=== PATIENT | female | born 1980 | race African-American/Black ===

== ENCOUNTER 2018-10-30 05:56 | Inpatient (IN) ==
[2018-10-30] MEDS ORDERED: ONDANSETRON 4 MG/2 ML VIAL IV PRN (06:09)
[2018-10-30] MEDS ORDERED: LACTATED RINGERS 250 ML IV ONE (06:09)
[2018-10-30] MEDS ORDERED: AMPICILLIN INJ 2,000 MG in SODIUM CHLORIDE 0.9% 100 ML IV PRN (06:14)
[2018-10-30] MEDS ORDERED: LACTATED RINGERS 1,000 ML IV SCH (06:30)
[2018-10-30] MEDS ORDERED: OXYTOCIN/LR 20 UNIT/1,000 ML BAG IV SCH (06:30)
[2018-10-30 06:35] LABS: Basophils % 0.2 % (0.0-0.8); Eosinophils % 0.4 % (0.00-10.9); Hematocrit 34.1 VOL% (35.7-47.0); Hemoglobin 11.6 GM/DL (12.0-16.0); Immature Granulocytes % 0.8 %; Immature Granulocytes Absolute 0.08 #; Lymphocytes # 2.2 10*3/uL (1.4-4.0); Lymphocytes % 20.9 % (21.3-54.2); Mean Corpuscular Volume 86.1 FL (87-102); Mean Platelet Volume 9.4 FL (9.6-12.0); Monocytes % 8.6 % (1.7-12.7); Neutrophils % 69.1 % (38.7-73.9); Platelet Count 350 T/CUMM (130-400); Red Blood Count 3.96 MC/CUMM (3.8-5.5); Red Cell Distribution Width 12.8 % (9.3-17.3); White Blood Count 10.5 T/CUMM (4-12)
[2018-10-30 07:05] LABS: Alanine Aminotransferase 13 U/L (13-56); Albumin 2.6 G/DL (3.4-5.0); Alkaline Phosphatase 196 U/L (45-117); Aspartate Amino Transferase 13 U/L (0-37); Bilirubin,Total < 0.39 MG/DL (0.2-1.0); Blood Urea Nitrogen 7 MG/DL (7-18); Calcium 9.2 MG/DL (8.5-10.1); Glucose 78 MG/DL (74-106); Osmolality,Calculated 273.5 MOS/KG (273-304); Total Protein 6.6 G/DL (6.4-8.3)
[2018-10-30] MEDS ORDERED: LACTATED RINGERS 1,000 ML IV ONE (07:27)
[2018-10-30] MEDS ORDERED: BUPIVACAINE SPINAL 0.75% 2 ML AMP SPINAL ONE (07:58)
[2018-10-30] MEDS ORDERED: PHENYLEPHRINE 1 MG/10 ML SYRINGE IV ONE (07:58)
[2018-10-30] MEDS ORDERED: EPINEPHrine 1 MG/ML VIAL ONE (07:58)
[2018-10-30] MEDS ORDERED: DEXAMETHASONE 4 MG/1 ML VIAL ONE (07:58)
[2018-10-30] MEDS ORDERED: ROPIVACAINE 0.5% 30 ML VIAL ONE (07:58)
[2018-10-30] MEDS ORDERED: MORPHINE 10 MG/10 ML VIAL ONE (07:59)
[2018-10-30] MEDS ORDERED: OXYTOCIN/LR 30 UNIT/1,000 ML BAG IV ONE (08:14)
[2018-10-30] MEDS ORDERED: CITRIC ACID/SODIUM CITRATE 30 ML UDCUP PO ONE (08:14)
[2018-10-30] MEDS ORDERED: OXYTOCIN 10 UNIT/ML VIAL IM ONE (08:14)
[2018-10-30] MEDS ORDERED: ceFAZolin 2,000 MG in PREMIX 1 EACH IV ONE (08:26)
[2018-10-30] MEDS ORDERED: FAMOTIDINE 20 MG/2 ML VIAL IV SCH (08:30)
[2018-10-30 09:53] LABS: Cord Venous Blood HCO3 21.9 MMOL/L; Cord Venous Blood PCO2 43.5 MMHG; Cord Venous Blood PO2 29.6
[2018-10-30 10:10] LABS: Apearance,Urine CLEAR (Clear); Bilirubin,Urine Negative (Negative); Blood, Urine Small mg/dL (Negative); Glucose,Urine (UA) Negative (Negative); Ketones,Urine Negative (Negative); Mucus,Urine Occasional /LPF (Occasional); Nitrite,Urine Negative (Negative); Protein,Urine Negative; RBC,Urine 1 /HPF (0-4); Squamous Epithelial Cell,Urine Occasional /HPF (0-10); Urine Color Straw (Yellow); Urine Specific Gravity 1.009 (1.001-1.035); Urine Urobilinogen < 2.0 EU/DL (0.2-1.0); WBC,Urine 2 /HPF (0-6)
[2018-10-30] MEDS ORDERED: MIDAZOLAM 2 MG/2 ML VIAL ONE (11:40)
[2018-10-30] MEDS: KETOROLAC 30 MG/1 ML VIAL IV SCH ×3 (11:56→23:41)
[2018-10-30] MEDS: ACETAMINOPHEN 500 MG TABLET PO SCH ×3 (11:56→23:37)
[2018-10-30] MEDS ORDERED: DIPH/TET/ACEL PERT BOOSTER VACCINE 0.5 ML VIAL IM ONE (12:15)
[2018-10-30] MEDS ORDERED: BISACODYL 10 MG SUPP RECTAL PRN (12:15)
[2018-10-30] MEDS ORDERED: MEASLES/MUMPS/RUBELLA VACCINE 0.5 ML VIAL SUBCUT ONE (12:15)
[2018-10-30] MEDS ORDERED: OXYTOCIN/LR 20 UNIT/1,000 ML BAG IV ONE (12:15)
[2018-10-30] MEDS ORDERED: LANOLIN 50% CREAM 0.3 OZ TUBE TOP PRN (12:15)
[2018-10-30] MEDS ORDERED: HYDROCORTISONE 2.5% RECTAL CREAM 30 GM TUBE TOP PRN (12:15)
[2018-10-30] MEDS ORDERED: oxyCODONE/ACETAMINOPHEN 5-325 MG TABLET PO PRN (12:15)
[2018-10-30] MEDS ORDERED: BENZOCAINE 20%/MENTHOL 0.5% SPRAY 56 GM CAN TOP PRN (12:15)
[2018-10-30] MEDS ORDERED: WITCH HAZEL PADS 100/JAR TOP PRN (12:15)
[2018-10-30] MEDS ORDERED: METHYLERGONOVINE 0.2 MG/1 ML AMP IM ONE (15:31)
[2018-10-30] MEDS ORDERED: diphenhydrAMINE 50 MG/1 ML VIAL IV PRN (16:22)
[2018-10-30] MEDS ORDERED: diphenhydrAMINE 50 MG/1 ML VIAL ONE (16:25)
[2018-10-30] MEDS: ceFAZolin 1,000 MG in SYRINGE 1 EACH IV SCH ×2 (16:34→23:36)
[2018-10-30 17:12] LABS: Basophils % 0.2 % (0.0-0.8); Hematocrit 33.7 VOL% (35.7-47.0); Hemoglobin 11.2 GM/DL (12.0-16.0); Immature Granulocytes % 0.7 %; Immature Granulocytes Absolute 0.11 #; Lymphocytes # 1.1 10*3/uL (1.4-4.0); Mean Corpuscular HGB Conc 33.2 GM/DL (32-36); Mean Corpuscular Volume 86.6 FL (87-102); Monocytes % 3.9 % (1.7-12.7); Neutrophils % 88.2 % (38.7-73.9); Platelet Count 328 T/CUMM (130-400); Red Blood Count 3.89 MC/CUMM (3.8-5.5); Red Cell Distribution Width 12.9 % (9.3-17.3); White Blood Count 15.8 T/CUMM (4-12)
[2018-10-30] MEDS: ACETAMINOPHEN 325 MG TABLET PO PRN ×2 (17:41→23:35)
[2018-10-31] MEDS: ACETAMINOPHEN 325 MG TABLET PO PRN (04:43)
[2018-10-31] MEDS: KETOROLAC 30 MG/1 ML VIAL IV SCH (04:43)
[2018-10-31] MEDS: ACETAMINOPHEN 500 MG TABLET PO SCH (05:22)
[2018-10-31 05:30] LABS: Basophils % 0.2 % (0.0-0.8); Eosinophils % 0.3 % (0.00-10.9); Hematocrit 25.7 VOL% (35.7-47.0); Hemoglobin 8.4 GM/DL (12.0-16.0); Immature Granulocytes % 1.1 %; Immature Granulocytes Absolute 0.13 #; Lymphocytes # 2.9 10*3/uL (1.4-4.0); Lymphocytes % 24.5 % (21.3-54.2); Mean Corpuscular HGB Conc 32.7 GM/DL (32-36); Mean Corpuscular Volume 88.3 FL (87-102); Mean Platelet Volume 9.7 FL (9.6-12.0); Monocytes % 9.4 % (1.7-12.7); Neutrophils % 64.5 % (38.7-73.9); Platelet Count 293 T/CUMM (130-400); Red Blood Count 2.91 MC/CUMM (3.8-5.5)
[2018-10-31] MEDS: DOCUSATE SODIUM 100 MG CAPSULE PO SCH ×2 (09:59→21:21)
[2018-10-31] MEDS: SIMETHICONE CHEW 80 MG TABLET PO PRN (09:59)
[2018-10-31] MEDS: IBUPROFEN 800 MG TABLET PO PRN ×2 (09:59→21:22)
[2018-10-31] MEDS: oxyCODONE/ACETAMINOPHEN 5-325 MG TABLET PO PRN ×2 (10:00→21:22)
[2018-10-31] MEDS: MAGNESIUM HYDROXIDE SUSP 30 ML UDCUP PO PRN ×2 (10:00→21:20)
[2018-10-31] MEDS: FERROUS SULFATE 325 MG TABLET PO SCH ×2 (16:50→21:22)
[2018-10-31] MEDS ORDERED: FERROUS SULFATE 325 MG TABLET PO SCH (21:00)
[2018-10-31] MEDS ORDERED: METOCLOPRAMIDE 10 MG TABLET ONE (21:17)
[2018-10-31] MEDS ORDERED: METOCLOPRAMIDE 10 MG TABLET PO SCH (22:30)
[2018-11-01] MEDS: METOCLOPRAMIDE 10 MG TABLET PO SCH ×3 (04:01→18:54)
[2018-11-01] MEDS: oxyCODONE/ACETAMINOPHEN 5-325 MG TABLET PO PRN ×2 (06:57→20:35)
[2018-11-01] MEDS: IBUPROFEN 800 MG TABLET PO PRN ×2 (06:57→20:34)
[2018-11-01] MEDS: MAGNESIUM HYDROXIDE SUSP 30 ML UDCUP PO PRN (09:58)
[2018-11-01] MEDS: DOCUSATE SODIUM 100 MG CAPSULE PO SCH ×2 (09:58→20:34)
[2018-11-01] MEDS: SIMETHICONE CHEW 80 MG TABLET PO PRN (09:58)
[2018-11-01] MEDS: FERROUS SULFATE 325 MG TABLET PO SCH ×2 (09:58→20:34)
[2018-11-01] MEDS ORDERED: METOCLOPRAMIDE 10 MG TABLET PO SCH (20:00)
[2018-11-02] MEDS: METOCLOPRAMIDE 10 MG TABLET PO SCH ×2 (03:34→07:05)
[2018-11-02] MEDS: oxyCODONE/ACETAMINOPHEN 5-325 MG TABLET PO PRN (03:35)
[2018-11-02] MEDS: IBUPROFEN 800 MG TABLET PO PRN (03:35)
[2018-11-02 07:29] VITALS: BP 148/83
[2018-11-02] MEDS: FERROUS SULFATE 325 MG TABLET PO SCH (09:54)
[2018-11-02] MEDS: DOCUSATE SODIUM 100 MG CAPSULE PO SCH (09:54)
== END 2018-11-02 14:42 | disposition home or self-care (01) | DRG 785 ==
LOC: N.LDOUT 05:56 → N.LD 05:59 → N.OB 12:07
PROVIDERS: ADMIT Obstetrics & Gynecology; ATTEND Obstetrics & Gynecology